=== PATIENT | male | born 1965 | race Caucasian/White ===

== ENCOUNTER 2018-04-21 16:51 | Emergency (ER) | payer OTHER ==
[~2018-04-21] VITALS: Ht 170.2 cm; Wt 75.0 kg
[2018-04-21 17:05] VITALS: BP 117/66
[2018-04-21] MEDS ORDERED: proparacaine 0.5% ophthalmic drops 15ml LEFTEYE ONE (18:10)
[2018-04-21] MEDS ORDERED: POLOS LEFTEYE (18:45)
== END 2018-04-21 19:05 | disposition home or self-care (01) ==
LOC: ER 16:53
DX: S05.02XA Injury of conjunctiva and corneal abrasion without foreign body, left eye, initial encounter (principal); Z79.2 Long term (current) use of antibiotics; X58.XXXA Exposure to other specified factors, initial encounter; Y93.89 Activity, other specified; Y92.89 Other specified places as the place of occurrence of the external cause; Y99.8 Other external cause status
CPT/HCPCS: 99283